=== PATIENT | male | born 1985 | race Caucasian/White ===

== ENCOUNTER 2024-10-08 06:18 | Emergency (ER) | payer SELFPAY ==
[2024-10-08 06:20] VITALS: BP 138/88
--- NOTE | 2024-10-08 07:09 | ED.GENMED ---
History of Present Illness
General
Chief Complaint: Cold/Flu/URI Symptoms
Source: patient
Time Seen by Provider: 10/08/24 07:02
History of Present Illness
History of Present Illness:
39-year-old male with no significant past medical history presenting to the emergency department for evaluation of left-sided sinus pressure and left ear fullness that has been gradually worsening over the last 2 weeks, no improvement with nasal
decongestant, Flonase and Afrin. Patient states he used the Afrin last night which caused a burning/irritation to the left nare and he decided not to use this again. Patient states he has not checked his temperature or felt febrile but did endorse
a little bit of achiness the other day. No known sick contacts, recent travel or recent antibiotics. Patient states that this feels similar to about 2 years ago when he was diagnosed with a sinus infection which required antibiotic for symptomatic
improvement. Patient states he recently moved back to this area and currently does not have a primary care provider which is why he presented to the ER today.
Past History
Past History
ED Past Medical History: None
ED Past Surgical History: None
Social History
Tobacco: Non-smoker
Alcohol: None
Drug: None
Personal: Single
Living: alone
Review of Systems
Review of Systems
All Other Systems: ROS reviewed and negative except as documented in HPI and ROS
Phy Exam
Physical Exam
Physical Exam:
GENERAL: Alert , in no apparent distress
EYE: conjunctiva clear
Head: Normocephalic atraumatic
NECK: Supple, no lymphadenopathy
ENT: mmm. Left TM does have a small middle ear effusion but no bulging or erythema of the TM, right TM also has a maggie appearance with small fluid but no bulging of the TM, uvula midline, airway patent, tolerating secretions
HEART: Regular rate and rhythm, no murmur
LUNGS: no acute respiratory distress, clear to auscultation throughout
NEUROLOGICAL: Alert and oriented
SKIN: Warm and dry, skin intact.
MUSCULOSKELETAL: well perfused.
PSYCH: Normal and appropriate interaction.
Scores
Heart Failure Risk
Heart Failure Risk Score: Not Applicable
Heart Score for Chest Pain Patients
STEMI patient?: Not applicable
Withdrawal Assessment of Alcohol
Withdrawal Assessment Completed?: Not applicable
Course
Vital Signs
Initial and Last Documented VS:
Initial Vital Signs
Temp Pulse Resp BP Pulse Ox
98.1 F 74 18 138/88 100
10/08/24 06:20 10/08/24 06:20 10/08/24 06:20 10/08/24 06:20 10/08/24 06:20
Last Documented Vital Signs
Temp Pulse Resp BP Pulse Ox
98.1 F 74 18 138/88 98
10/08/24 06:20 10/08/24 06:20 10/08/24 06:20 10/08/24 06:20 10/08/24 07:41
MDM/Problems Addressed
Differential Diagnosis Includes:
Bacterial versus viral sinusitis, hayfever/allergic rhinitis, otitis media,
MDM/Problems Addressed:
39-year-old male presenting to the ER for evaluation of 2 weeks of gradually worsening left-sided sinus congestion and ear pressure. Exam does reveal a middle ear effusion on the left. Patient has been attempting [id number] measures with
minimal relief including decongestant and nasal steroid. Given symptoms been ongoing for 2 weeks, no improvement with OTC meds will trial a Z-Waylon, Medrol Dosepak and Claritin. Motrin/Tylenol as needed for pain. Continue OTC decongestant. Stable
for discharge home
*Pulse Oximetry
Patient hypoxic: no
*Critical Care Note
Total Time (30-74mins, 75-104mins- exclusive of procedures): Not Applicable
ED Attending Note
-
Portions of this chart may have been created with voice recognition software.� Occasional wrong word or��sound alike� substitutions may have occurred due to the inherent limitations of voice recognition software.
Discharge Plan
Departure
Patient Disposition: Home (Routine Discharge)
Date of Disposition: 10/08/24
Time of Disposition: 07:09
Patient with high blood pressure during this ER visit?: No
Discharge Problem:
Sinusitis
Instructions: Sinusitis in adults - ED discharge instructions
Prescriptions:
New
azithromycin [Zithromax Z-Waylon] 250 mg tablet
250 mg PO DAILY Qty: 6 0RF
Rx Instructions:
Take 2 tab PO day 1, take 1 tab remaining 4 days
methylprednisolone [Medrol (Waylon)] 4 mg tablets,dose pack
4 mg PO DIRECTED Qty: 21 0RF
loratadine [Claritin] 10 mg tablet
10 mg PO DAILY Qty: 15 0RF
Interventions
Interventions:
*Risk Screen - Suicide Last Done: 10/08/24 06:20
*General Assessment Last Done: 10/08/24 07:41
*Neglect/Abuse Screening Last Done: 10/08/24 06:20
*ED- Fall Risk Assessment Last Done: 10/08/24 07:41
*ED COVID-19 Vaccine History Last Done: 10/08/24 07:41
*Nursing Disposition Last Done: 10/08/24 07:41
ED- Pulmonary Assessment Last Done: 10/08/24 07:41
Discharge Date and Time
Discharge Date/Time: 10/08/24 07:45
Print Language: SLOVENIAN
== END 2024-10-08 07:45 | disposition home or self-care (01) ==
LOC: EMR 06:18
PROVIDERS: EMERGENCY PHYSICIAN Emergency Medicine
DX: J32.9 Chronic sinusitis, unspecified (principal)
CPT/HCPCS: 99282